=== PATIENT | male | born 1990 | race African-American/Black ===

== ENCOUNTER 2017-06-05 12:31 | Emergency (ER) | payer BC, OTHER ==
[~2017-06-05] VITALS: Ht 182.9 cm; Wt 86.2 kg
[2017-06-05 12:36] VITALS: BP 158/78
[2017-06-05] MEDS ORDERED: KETOROLAC TROMETHAMINE INJ 30 MG/ML VIAL ONE (12:58)
[2017-06-05] MEDS ORDERED: KETOROLAC TROMETHAMINE INJ 60 MG/2 ML VIAL IM ONE (13:00)
== END 2017-06-05 13:51 | disposition home or self-care (01) ==
LOC: ER 12:32
DX: S43.52XA Sprain of left acromioclavicular joint, initial encounter (principal); S86.811A Strain of other muscle(s) and tendon(s) at lower leg level, right leg, initial encounter; S20.219A Contusion of unspecified front wall of thorax, initial encounter; S00.03XA Contusion of scalp, initial encounter; I10 Essential (primary) hypertension; V43.52XA Car driver injured in collision with other type car in traffic accident, initial encounter; Y92.410 Unspecified street and highway as the place of occurrence of the external cause; Y93.89 Activity, other specified; Y99.8 Other external cause status
CPT/HCPCS: 71010; 96372; 99283; A4606; J1885; Z7610